=== PATIENT | male | born 1990 | race Caucasian/White ===

== ENCOUNTER 2021-09-16 21:33 | Emergency (ER) | payer OTHER ==
[2021-09-16 22:02] LABS: BASOPHIL 0.6 % (0-2); HCT 44.5 % (42.0-52.0); HGB 15.9 g/dl (13.2-18.0); MCH 32.6 pg (25.0-31.0); MCHC 35.7 g/dL (32.0-36.0); MCV 91.4 fL (78.0-100.0); MONOCYTE 7.4 % (0-12); MPV 9.5 fL (6.0-9.5); NEUTROPHIL 37.7 % (41-80); NRBC 0; PLT 279 K/uL (150-400); RBC 4.87 M/uL (4.70-6.00); RDW 12.3 % (11.5-14.0); WBC 10.7 K/uL (4.0-10.5)
[2021-09-16 22:41] LABS: ALBUMIN 4.1 g/dL (3.4-5.0); BILIRUBIN - TOTAL 0.3 mg/dL (0.2-1.0); CREATININE 1.27 mg/dL (0.67-1.17); GLOBULIN (CALCULATION) 3.7 g/dL; POTASSIUM 3.6 mmol/L (3.5-5.1); TOTAL PROTEIN 7.8 g/dL (6.4-8.2)
== END 2021-09-17 00:28 | disposition left against medical advice (07) ==
LOC: FER 21:33
PROVIDERS: Internal Medicine
DX: S01.01XA Laceration without foreign body of scalp, initial encounter (principal); F10.120 Alcohol abuse with intoxication, uncomplicated; F17.210 Nicotine dependence, cigarettes, uncomplicated; Z53.8 Procedure and treatment not carried out for other reasons; W01.0XXA Fall on same level from slipping, tripping and stumbling without subsequent striking against object, initial encounter; Y92.410 Unspecified street and highway as the place of occurrence of the external cause
CPT/HCPCS: 36415; 70450; 80053; 85025; G0480; J3411; J7120